=== PATIENT | male | born 1985 | race Caucasian/White ===

== ENCOUNTER 2020-06-18 11:22 | Emergency (ER) | payer MEDICAID ==
[~2020-06-18] VITALS: Ht 175.3 cm; Wt 63.6 kg
[2020-06-18 12:52] LABS: BASOPHILS % (AUTO) 0.5 % (0-1); EOSINOPHILS # (AUTO) 0.1 X10'3 (0-0.9); EOSINOPHILS % (AUTO) 2.5 % (0-6); HEMATOCRIT 40.4 % (42.0-52.0); HEMOGLOBIN 13.2 g/dl (14.0-17.9); LYMPHOCYTES # (AUTO) 1.6 X10'3 (1.1-4.8); LYMPHOCYTES % (AUTO) 32.2 % (21-51); MEAN CORPUSCULAR HGB CONC 32.7 g/dL (33.0-36.5); MEAN CORPUSCULAR VOLUME 88.9 FL (78-98); MEAN PLATELET VOLUME 8.4 FL (7.4-10.4); MONOCYTES # (AUTO) 0.3 X10'3 (0-0.9); MONOCYTES % (AUTO) 6.5 % (2-12); NEUTROPHILS # (AUTO) 2.8 X10'3 (1.8-7.7); NEUTROPHILS % (AUTO) 58.3 % (42-75); PLATELET COUNT 201 X10'3 (140-440); RED BLOOD COUNT 4.55 X10'6 (4.70-6.10); RED CELL DISTRIBUTION WIDTH 14.2 % (11.5-14.5); WHITE BLOOD COUNT 4.8 X10'3 (4.5-11.0)
[2020-06-18 13:04] LABS: ALANINE AMINOTRANSFERASE 166 U/L (12-78); ALBUMIN 4.3 G/DL (3.4-5.0); ALBUMIN/GLOBULIN RATIO 1.1 (1.1-1.5); ALKALINE PHOSPHATASE 55 IU/L (46-116); ANION GAP 8 (8-16); ASPARTATE AMINO TRANSFERASE 74 U/L (10-37); BILIRUBIN,TOTAL 0.6 MG/DL (0.1-1.0); BLOOD UREA NITROGEN 21 MG/DL (7-18); BUN/CREATININE RATIO 20.6 (5.4-32.0); CALCIUM 8.9 MG/DL (8.5-10.1); CHLORIDE 103 MMOL/L (99-107); CREATININE 1.02 MG/DL (0.60-1.10); GLUCOSE 118 MG/DL (70-104); POTASSIUM 3.9 MMOL/L (3.5-5.1); SODIUM 138 MMOL/L (135-145); TOTAL PROTEIN 8.3 G/DL (6.4-8.2); eGFR 84 ML/MIN
[2020-06-18 14:56] VITALS: BP 111/69
== END 2020-06-18 14:58 | disposition home or self-care (01) ==
LOC: ER 11:23
DX: R07.89 Other chest pain (principal); M25.512 Pain in left shoulder
CPT/HCPCS: 36415; 71045; 80053; 83880; 84484; 85025; 93005; 99285

== ENCOUNTER 2020-07-03 09:03 | Emergency (ER) | payer MEDICAID ==
[~2020-07-03] VITALS: Ht 172.7 cm; Wt 65.0 kg
[2020-07-03] MEDS ORDERED: ondansetron/PF 4mg/2ml inj IV ONE ×2 (09:10→10:45)
[2020-07-03] MEDS ORDERED: ondansetron 4mg rapidly disintigrating tab PO ONE (09:35)
[2020-07-03] MEDS: normal saline 1000ML IV soln IVB ONE ×2 (09:37→09:59)
[2020-07-03 09:58] VITALS: BP 119/72
[2020-07-03] MEDS ORDERED: NALO4SPR BOTHNARES (10:43)
== END 2020-07-03 11:42 | disposition home or self-care (01) ==
LOC: ER 09:04
DX: T40.1X1A Poisoning by heroin, accidental (unintentional), initial encounter (principal); R40.4 Transient alteration of awareness; Z79.899 Other long term (current) drug therapy; Y92.89 Other specified places as the place of occurrence of the external cause
CPT/HCPCS: 76937; 93005; 96361; 96374; 99284; J2405; J7030; 99283

== ENCOUNTER 2022-10-15 13:22 | Emergency (ER) | payer MEDICAID ==
[~2022-10-15] VITALS: Ht 175.3 cm; Wt 70.5 kg
[~2022-10-15 13:22] MED LIST: NALO4SPR BOTHNARES
[2022-10-15 13:30] VITALS: BP 115/74
--- NOTE | 2022-10-15 13:48 | NUR ---
PROVIDERS NOTIFIED OF PT IN ROOM
[2022-10-15] MEDS ORDERED: proparacaine 0.5% ophthalmic drops 15ml EACHEYE ONE (14:00)
[2022-10-15] MEDS ORDERED: ciprofloxacin 0.3% 2.5ml ophthalmic solution RIGHTEYE ONE (15:00)
== END 2022-10-15 15:52 | disposition home or self-care (01) ==
LOC: ER 13:24
DX: T15.01XA Foreign body in cornea, right eye, initial encounter (principal); Z79.899 Other long term (current) drug therapy; X58.XXXA Exposure to other specified factors, initial encounter; Y93.89 Activity, other specified; Y92.89 Other specified places as the place of occurrence of the external cause; Y99.8 Other external cause status
CPT/HCPCS: 65222; 99284

== ENCOUNTER 2025-03-23 13:29 | Outpatient (CLI) | payer MEDICAID ==
--- NOTE | 2025-03-23 16:47 | RADIOLOGY REPORT ---
CLINICAL HISTORY: ABNORMAL LEVELS OF OTHER SERUM ENZYMES TECHNIQUE: MRCP of the abdomen was performed without and with gadolinium. 15 mL Clariscan injected intravenously. 3D reconstructed images were created under concurrent radiologist supervision and archived on the PACS system. WID: COMPARISON: None FINDINGS: Lower Thorax: Unremarkable. Liver and Biliary system: Unremarkable. Spleen: Unremarkable. Adrenal Glands and Kidneys: Unremarkable. Pancreas and Retroperitoneum: Unremarkable. Aorta and Major Vessels: Unremarkable. Bowel, Mesentery and Peritoneal space: Unremarkable. Abdominal wall and Osseous Structures: Unremarkable. IMPRESSION: 1. No biliary or pancreatic ductal dilatation, enhancing lesion, acute abnormality, or cholelithiasis.
[2025-03-23] MEDS ORDERED: GADOTERATE MEGLUMINE 7.5 MMOL/15 ML VIAL IV ONE (16:55)
== END 2025-03-23 23:59 | disposition home or self-care (01) ==
LOC: MRI 13:29
PROVIDERS: ATTEND Family Medicine
DX: R74.8 Abnormal levels of other serum enzymes (principal)
CPT/HCPCS: 74183; A9575

== ENCOUNTER 2025-04-19 12:08 | Outpatient (CLI) | payer MEDICAID ==
--- NOTE | 2025-04-19 14:54 | RADIOLOGY REPORT ---
EXAM: MR MRI PELVIS HISTORY: SCROTAL PAIN COMPARISON: MR MRI ABDOMEN on DOS: 04/19/25 TECHNIQUE: Multiplanar, multisequence imaging of the pelvis for genitourinary evaluation was performed with and without contrast. FINDINGS: REPRODUCTIVE: Trace right hydrocele bilateral testicles are symmetric and appear within normal limits. No abnormal enhancement. Prostate appears within normal limits. Bilateral inguinal canals appear within normal limits. BLADDER: Normal enhancement without suspicious lesions or hydronephrosis. VISUALIZED BOWEL: Grossly unremarkable. VASCULATURE: Unremarkable. LYMPHADENOPATHY: No evidence for lymphadenopathy. ASCITES: Absent. MUSCULOSKELETAL: Bone marrow signal is normal. OTHER: None IMPRESSION: 1. Trace right hydrocele. 2. Otherwise, unremarkable MRI of the pelvis without contrast.
--- NOTE | 2025-04-19 18:56 | RADIOLOGY REPORT ---
EXAM: MR MRI ABDOMEN HISTORY: SUSPECTED MASS IN ABDOMEN COMPARISON: MR MRI PELVIS on DOS: 04/19/25 TECHNIQUE: Multiplanar, multisequence imaging of the abdomen was performed with and without contrast. FINDINGS: [LOWER CHEST]: No pleural effusion. [LIVER]: The liver is normal in size without focal lesions. Normal liver contour. [SPLEEN]: Unremarkable. [PANCREAS]: The pancreas is normal in appearance without focal lesions. Normal pancreatic duct size. [GALLBLADDER AND DUCTS]: No intrahepatic biliary dilation. Normal caliber of the common bile duct. No choledocholithiasis. Possible layering biliary sludge. No discrete cholelithiasis. [ADRENAL GLANDS]: Unremarkable. [KIDNEYS]: Normal enhancement without suspicious lesions or hydronephrosis. [VISUALIZED BOWEL]: Grossly unremarkable. Mild stool burden. [VASCULATURE]: Question slight dilation of the left renal vein as it courses underneath the superior mesenteric artery axis and correlate for nutcracker syndrome. [LYMPHADENOPATHY]: No evidence for lymphadenopathy. [ASCITES]: Absent. [MUSCULOSKELETAL]: Bone marrow signal is normal. [OTHER]: None IMPRESSION: 1. No evidence for mass or lymphadenopathy. 2. Questionable biliary sludge. 3. Slight dilation of the left renal vein with possible stenosis of the area as it courses underneath the superior mesenteric artery. Correlation with clinical exam required. 4. No biliary dilation.
[2025-04-19] MEDS ORDERED: GADOTERATE MEGLUMINE 7.5 MMOL/15 ML VIAL IV ONE (21:07)
== END 2025-04-19 23:59 | disposition home or self-care (01) ==
LOC: MRI 12:08
PROVIDERS: ATTEND Family Medicine
DX: N50.82 Scrotal pain (principal)
CPT/HCPCS: 72197; 74183; A9575

== ENCOUNTER 2025-06-15 11:09 | Outpatient (CLI) | payer MEDICAID ==
--- NOTE | 2025-06-15 16:29 | RADIOLOGY REPORT ---
CTA ABDOMEN AND PELVIS Clinical Indication: ABDOMINAL PAIN TECHNIQUE: Multiple contiguous axial images were obtained through the abdomen and pelvis following the administration of IV contrast material. Post processing coronal and sagittal reconstruction images were made from the axial images. Image post-processing was obtained. MIP imaging of the abdomen and pelvis arteries obtained IV contrast: Omnipaque-350 CTDI: 19.39+ 9.48 mGy ; DLP: 468.6 mGy COMPARISON: MR MRI ABDOMEN on DOS: 04/19/25, FINDINGS: Lower Thorax: Unremarkable. Liver and Biliary system: Unremarkable. Spleen: Unremarkable. Adrenal Glands and Kidneys: Unremarkable. Pancreas and Retroperitoneum: Unremarkable. Aorta and Major Vessels: Widely patent abdominal aorta and Normal caliber. Widely patent origins of the celiac axis, SMA, 2 left and 2 left renal arteries, BRUNILDA, and common iliac arteries. Widely patent and normal caliber bilateral external and internal iliac arteries and proximal femoral arteries. Bowel, Mesentery and Peritoneal space: Normal caliber small and large bowel. Trace ascites in the pelvis. Normal appendix. Moderate retained stool in the colon. No free air or fluid collection. Pelvis: Unremarkable. Abdominal wall and Osseous Structures: No destructive osseous lesion. IMPRESSION: 1. Widely patent and Normal caliber aortoiliac vessels and aortic branch vessels. 2. No bowel obstruction, fluid collection, or free air. Normal appendix. 3. Moderate retained stool in the colon suggesting constipation.
== END 2025-06-15 23:59 | disposition home or self-care (01) ==
LOC: RAD 11:09
PROVIDERS: ATTEND Family Medicine
DX: R10.9 Unspecified abdominal pain (principal); I87.1 Compression of vein; N50.82 Scrotal pain
CPT/HCPCS: 74174; Q9967